=== PATIENT | female | born 1950 | race Asian ===

== ENCOUNTER 2017-09-19 09:36 | Emergency (ER) | payer BC, OTHER ==
--- NOTE | 2017-09-19 09:58 | CPEKG ---
Heart Rate: 65 RR Interval: 923 P-R Interval: 176 QRSD Interval: 86 QT Interval: 416 QTC Interval: 433 P [place]: 78 QRS [place]: 81 T Wave [place]: 53 EKG Severity - OTHERWISE NORMAL ECG - EKG Impression: SINUS RHYTHM EKG Impression: ATRIAL PREMATURE COMPLEX EKG Impression: BORDERLINE RIGHT AXIS DEVIATION Electronically Signed By: Mela Desir 19-Sep-2017 15:02:02
[2017-09-19] MEDS ORDERED: ASPIRIN 81 MG CHEWABLE TAB PO ONE (10:10)
--- NOTE | 2017-09-19 10:17 | EDPHY ---
H & P Time Seen by Provider: 09/19/17 09:52 HPI/ROS: CHIEF COMPLAINT: Left arm pain, palpitations HISTORY OF PRESENT ILLNESS: Patient is a 67-year-old female who presents emergency department with left shoulder pain times 10 days. She states her pain is constant. It is worse with movement. She does not recall injuring herself. The patient also reports that she has had palpitations daily for the past year and a half. She denies any chest pain. No shortness of breath. No nausea or vomiting. No diaphoresis. No leg pain or swelling. No family history of cardiac disease. REVIEW OF SYSTEMS: My complete review of systems is negative except as mentioned in the HPI. Past Medical/Surgical History: Negative past surgical history: Noncontributory Social history: Patient does not smoke Family history: Patient denies cardiac disease Smoking Status: Never smoked Physical Exam: 36.7, 128/84, 60, 16, 99% on room air GENERAL: Well-appearing, in no acute distress, alert. HEENT: Eyes normal to inspection, normal pharynx, no signs of dehydration. NECK: [No thyromegaly, no lymphadenopathy, supple. RESPIRATORY: Clear to auscultation bilaterally, no rales, rhonchi or wheezing. CVS: Regular rate and rhythm, no rubs, murmurs, or gallops. ABDOMEN: Soft, nontender, nondistended, no organomegaly. BACK: Normal to inspection, no CVA tenderness. SKIN: Normal color, no rash, warm, dry. No pallor. EXTREMITIES: No pedal edema, no calf tenderness, no Homans sign or cords, no joint swelling. Patient's left shoulder appears normal. She has mild tenderness palpation over the left deltoid. She has discomfort with throwing movement and resistance. NEURO/PSYCH: Alert and oriented x3, normal mood and affect, normal motor sensory exam. No obvious cranial nerve deficit. Constitutional: Initial Vital Signs Temperature (C) 36.7 C 09/19/17 09:40 Heart Rate 68 09/19/17 09:40 Respiratory Rate 16 09/19/17 09:40 Blood Pressure 128/84 H 09/19/17 09:40 O2 Sat (%) 99 09/19/17 09:40 O2 Delivery Mode Room Air Allergies/Adverse Reactions: No Known Allergies Allergy (Unverified 09/19/17 09:40) Home Medications: Medication Instructions Recorded NK [No Known Home Meds] 09/19/17 Medical Decision Making ED Course/Re-evaluation: In the emergency department I discussed possible etiologies with the patient. I answered all her questions. Patient was given aspirin 324 mg orally. Laboratory studies and EKG were ordered. EKG shows normal sinus rhythm, normal rate, normal axis, normal intervals. There are no ST or T-wave abnormalities. EKG is normal as interpreted by me. The patient's troponin and laboratory studies were unremarkable. I discussed the results with the patient. I answered all her questions. She was given warnings prior to leaving. She will return with worsening symptoms. She was given follow-up with Orthopedics as well as primary care physician. Differential Diagnosis: My differential includes but is not limited to ACS, acute OH, PE, dissection, aneurysm, muscle strain, rotator cuff injury, DVT - Data Points Laboratory Results: Laboratory Results 09/19/17 10:23 09/19/17 10:23 09/19/17 09/19/17 10:23 10:23 WBC 5.45 10^3/uL 10^3/uL (3.80-9.50) RBC 4.55 10^6/uL 10^6/uL (4.18-5.33) Hgb 13.5 g/dL g/dL (12.6-16.3) Hct 40.2 % % (38.0-47.0) MCV 88.4 fL fL (81.5-99.8) MCH 29.7 pg pg (27.9-34.1) MCHC 33.6 g/dL g/dL (32.4-36.7) RDW 12.9 % % (11.5-15.2) Plt Count 276 10^3/uL 10^3/uL (150-400) MPV 9.0 fL fL (8.7-11.7) Neut % (Auto) 57.7 % % (39.3-74.2) Lymph % (Auto) 35.0 % % (15.0-45.0) [place] % (Auto) 4.8 % % (4.5-13.0) Eos % (Auto) 1.5 % % (0.6-7.6) Baso % (Auto) 0.4 % % (0.3-1.7) Nucleat RBC Rel Count 0.0 % % (0.0-0.2) Absolute Neuts (auto) 3.15 10^3/uL 10^3/uL (1.70-6.50) Absolute Lymphs (auto) 1.91 10^3/uL 10^3/uL (1.00-3.00) Absolute Monos (auto) 0.26 10^3/uL L 10^3/uL (0.30-0.80) Absolute Eos (auto) 0.08 10^3/uL 10^3/uL (0.03-0.40) Absolute Basos (auto) 0.02 10^3/uL 10^3/uL (0.02-0.10) Absolute Nucleated RBC 0.00 10^3/uL 10^3/uL (0-0.01) Immature Gran % 0.6 % % (0.0-1.1) Immature Gran # 0.03 10^3/uL 10^3/uL (0.00-0.10) Sodium 144 mEq/L mEq/L (135-145) Potassium 4.0 mEq/L mEq/L (3.5-5.2) Chloride 105 mEq/L mEq/L (97-110) Carbon Dioxide 28 mEq/l mEq/l (22-31) Anion Gap 11 mEq/L mEq/L (8-16) BUN 18 mg/dL mg/dL (7-23) Creatinine 0.6 mg/dL mg/dL (0.6-1.0) Estimated GFR > 60 Glucose 99 mg/dL mg/dL (70-100) Calcium 9.8 mg/dL mg/dL (8.5-10.4) Troponin I < 0.012 ng/mL ng/mL (0.000-0.034) Medications Given: Discontinued Medications Aspirin (Aspirin) 324 mg PO EDNOW ONE Stop: 09/19/17 10:11 Last Admin: 09/19/17 10:16 Dose: 324 mg Departure - Departure Disposition: Home, Routine, Self-Care Clinical Impression: Palpitations Left shoulder pain Qualifiers: Chronicity: acute Qualified Code(s): M25.512 - Pain in left shoulder Condition: Good Instructions: Heart Palpitations (ED), Shoulder Pain (ED) Additional Instructions: Return with increasing pain, weakness, numbness or any other concerns Referrals: Kira Mason DO [Doctor of Osteopathy] - 5-7 days, call for appt. Eliot Tovar MD [Medical Doctor] - 5-7 days, call for appt.
[2017-09-19 10:38] LABS: PLATELET COUNT 276 10^3/uL (150-400)
[2017-09-19 11:48] VITALS: BP 130/79
== END 2017-09-19 11:48 | disposition home or self-care (01) ==
DX: R00.2 Palpitations (principal); M25.512 Pain in left shoulder